=== PATIENT | male | born 1980 | race Caucasian/White ===

== ENCOUNTER 2021-05-11 09:40 | Outpatient (CLI) | payer BC, SELFPAY ==
--- NOTE | 2021-05-11 09:15 | DI.RAD_ITS ---
Exam(s) XR KNEE LT 3V AP,LAT,CLARY EXAM: XR KNEE LT 3V AP,LAT,CLARY CLINICAL HISTORY: L knee pain. TECHNIQUE: 2D digital imaging was performed. COMPARISON: CR KNEES BILAT AP STANDING LATS from 09/05/2012 FINDINGS: Three views left knee compared to 2013. Again noted is a screw-device in the superior aspect of the tibia, probably related to prior osteotom y in the region of the anterior tibial tubercle. There are advanced degenerative changes with [id number] narrowing of the medial compartment. Also marginal osteophytes. Less narrowing of the lateral compartment noted. Mild narrowing of the patell ofemoral compartment. Bone density is otherwise normal. IMPRESSION: Previous surgery as above. Significant degenerative changes. DATA REPOSITORY: RADIATION DOSE DELIVERED:
== END 2021-05-11 09:41 | disposition home or self-care (01) ==
LOC: DIORS 09:40
PROVIDERS: PCP Nurse Practitioner; Referring Provider Nurse Practitioner; Visit Provider Physician Assistant
DX: M25.562 Pain in left knee (principal); M17.12 Unilateral primary osteoarthritis, left knee
CPT/HCPCS: 73562

== ENCOUNTER 2024-05-28 03:40 | Outpatient (CLI) | payer BC, SELFPAY ==
[2024-05-28 12:30] LABS: Hemoglobin A1C 5.5 % (<5.7)
[2024-05-28 12:45] LABS: Calculated LDL 169 mg/dL (<100); Cholesterol 260 mg/dL (<200); HDL Cholesterol 57 mg/dL (40-60); Triglyceride 173 mg/dL (<150)
[2024-06-02 17:31] LABS: Testosterone, Free 17.3 ng/dL (4.46-17.1); Testosterone, Total 404 ng/dL (240-950)
== END 2024-05-28 03:41 | disposition home or self-care (01) ==
LOC: LOS 03:40
PROVIDERS: PCP Nurse Practitioner Family; Visit Provider Nurse Practitioner Family
DX: Z13.1 Encounter for screening for diabetes mellitus (principal); N52.9 Male erectile dysfunction, unspecified; Z00.00 Encounter for general adult medical examination without abnormal findings
CPT/HCPCS: 36415; 80061; 84402; 84403; 83036